=== PATIENT | male | born 1955 | race Caucasian/White ===

== ENCOUNTER → 2020-09-02 | Outpatient (CLI) | payer OTHER ==
[~2020-09-02] MED LIST: HYDR-2761 PO; HYDR50TA9 PO; LEVO88TA4 PO; MULT-445 PO
== END ==
LOC: LAB 08:45
PROVIDERS: ATTEND Surgery
DX: Z01.812 Encounter for preprocedural laboratory examination (principal); Z20.822 Contact with and (suspected) exposure to COVID-19; K80.20 Calculus of gallbladder without cholecystitis without obstruction
CPT/HCPCS: U0003

== ENCOUNTER 2020-09-04 08:15 | Observation (INO) | payer OTHER ==
[2020-09-04] VITALS (9 sets, daily range): BP systolic 107–125; BP diastolic 58–83
[~2020-09-04] VITALS: Ht 175.3 cm; Wt 104.0 kg
[~2020-09-04 08:15] MED LIST changes: +BUPIVACAINE MPF 0.5% 30 ML VIAL. ONE; -HYDR-2761 PO; +IOHEXOL 300 MG/ML 50 ML VIAL. ONE; +IV RINGERS,LACTATED 1000ML 1,000 ML IV SCH; +PROCHLORPERAZINE 10 MG/2 ML VIAL. IVP PRN; +SURGICEL HEMOSTAT 4X8 EACH. ONE; +fentaNYL PF VIAL 100 MCG/2 ML VIAL IVP PRN
[2020-09-04] MEDS ORDERED: ROCURONIUM 50 MG/5 ML VIAL. ONE ×2 (09:29→11:02)
[2020-09-04] MEDS ORDERED: SUCCINYLCHOLINE 200 MG/10 ML VIAL. ONE (09:30)
[2020-09-04] MEDS ORDERED: fentaNYL PF VIAL 100 MCG/2 ML VIAL ONE ×4 (09:30→11:30)
[2020-09-04] MEDS ORDERED: LIDOCAINE 2% PF 5 ML VIAL. ONE (09:57)
[2020-09-04] MEDS ORDERED: PROPOFOL 10 MG/ML (20ML) VIAL. IV ONE ×2 (09:57→10:07)
[2020-09-04] MEDS ORDERED: ePHEDrine PF IN SALINE 50 MG/10 ML SYRINGE. IV ONE (09:58)
[2020-09-04] MEDS ORDERED: DEXAMETHASONE SOD PHOS 4 MG/ML VIAL ONE (09:58)
[2020-09-04] MEDS ORDERED: ONDANSETRON PF 4 MG/2 ML VIAL. ONE (09:58)
[2020-09-04] MEDS ORDERED: KETOROLAC 30 MG/ML VIAL. ONE (10:07)
[2020-09-04] MEDS ORDERED: GLYCOPYRROLATE 1 MG/5 ML VIAL. ONE (10:10)
[2020-09-04] MEDS ORDERED: NEOSTIGMINE METHYLSULFATE 5 MG/5 ML SYRINGE. ONE (10:10)
[2020-09-04] MEDS ORDERED: PHENYLEPHRINE in 0.9% NACL PF 1 MG/10 ML SYRINGE. IV ONE (11:10)
[2020-09-04] MEDS ORDERED: SEVOFLURANE 61 TO 120 MINUTES. IH ONE (11:12)
[2020-09-04] MEDS ORDERED: PROCHLORPERAZINE 10 MG/2 ML VIAL. IV PRN (11:30)
[2020-09-04] MEDS ORDERED: HYDROcodone/APAP 5/325MG 1 TAB TABLET PO PRN (11:30)
[2020-09-04] MEDS ORDERED: HYDROmorphone 2 MG/ML VIAL IV PRN (11:30)
[2020-09-04] MEDS ORDERED: PROCHLORPERAZINE 10 MG/2 ML VIAL. ONE ×2 (11:30→12:49)
[2020-09-04] MEDS ORDERED: NALOXONE 0.4 MG/ML VIAL. IV PRN (11:30)
[2020-09-04] MEDS ORDERED: 0.9 % SODIUM CHLORIDE 10 ML DISP.SYRIN. IV PRN (11:30)
[2020-09-04] MEDS ORDERED: ONDANSETRON PF 4 MG/2 ML VIAL. IVP PRN (11:30)
[2020-09-04] MEDS ORDERED: IV NORMAL SALINE 1000ML BAG 1,000 ML IV SCH (11:30)
--- NOTE | 2020-09-04 11:39 | PDOC4 ---
Operative Note Operative Note Operative Note: Preoperative Diagnosis: Calculus cholecystitis Postoperative Diagnosis: Severe acute and chronic cholecystitis Procedure: Laparoscopic cholecystectomy with intraoperative cholangiogram Surgeons: David Sales Leader: MINA Huff Anesthesia: Gen. Estimated Blood Loss: 40 mL Specimen: Gallbladder to pathology Drains: 19 Portuguese GRACIELA drain Complications: None Indications: The patient is a 65-year-old male who was referred with suspected calculus cholecystitis. Surgical treatment was offered by means of a laparoscopic cholecystectomy. The risks of surgery were discussed which include bleeding, infection, bile duct injury, bile leak, pain, the potential for additi onal surgeries or procedures. The patient understands and would like to proceed. Description: The patient was taken to the operating room and laid supine on the operating table. General anesthesia was performed. The abdomen was prepped with ChloraPrep and draped in a standard surgical fashion. A small infraumbilical incision was made with a scalpel. The Veress needle was then inserted and a pneumoperitoneum was then created. A 5 mm trocar was then inserted and the laparoscope was introduced. In the upper midabdomen a 12 mm trocar was inserted and in the right upper quadrant two 5 mm trochars were inserted. The gallbladder was obscured from adherent omentum. This was peeled away revealing numerous inflammatory adhesions consistent with prior episodes of cholecystitis. The gallbladder was thick-walled consistent with acute and chronic cholecystitis. Approximately 40 cc of fluid was aspirated providing gallbladder decompression. The gallbladder was retracted cephalad. We began dissection along the inferior aspect of the gallbladder. This was again difficult due to the numerous adhesions and chronic fibrotic reaction. Ev entually the cystic duct was identified and appeared somewhat distended. One clip was placed on the duct near the gallbladder junction. An opening was made in the duct and stones and debris were extracted. A cholangiocatheter placed within and secured with a clip. Using contrast dye and fluoroscopy an intraoperative cholangiogram was performed that appeared unremarkable. The clip and catheter were then withdrawn. Three clips were placed on the cystic duct and it was divided. The cystic artery was then identified, dissected free, doubly clipped and divided as well. The gallbladder was then mobilized away from the liver with cautery. This proved very challenging due to the inflammatory response which essentially fused the gallbladder with the liver pa renchyma. A Surgicel pack was placed on the gallbladder fossa to assist with hemostasis. The gallbladder was then placed in an endoscopic bag and extracted at the superior trocar site. The fascia there was closed with 0 Vicryl sutures. All blood and irrigation fluid was suctioned and hemostasis was good. A 19 Portuguese GRACIELA drain was left in the area of the gallbladder fossa which exited at the right port incision site. This was secured to the skin with 2-0 silk. The remaining ports were removed and the pneumoperitoneum was relieved. The skin incisions were closed using 4-0 Monocryl suture. Steri-Strips and dressings were then applied. The patient tolerated the procedure well and was sent to the recovery room in stable condition. At the end of the case all counts were correct. SHANITA PUENTE MD Sep 04, 2020 11:39
[2020-09-04] MEDS: PIPERACILLIN/TAZOBACTAM 3.375 GM in IV NORMAL SALINE 50ML 50 ML IV SCH ×3 (12:28→23:52)
[2020-09-04] MEDS: fentaNYL PF VIAL 100 MCG/2 ML VIAL IVP PRN ×2 (12:31→12:42)
[2020-09-04] MEDS ORDERED: HYDROmorphone 2 MG/ML VIAL ONE (12:40)
[2020-09-04] MEDS: HYDROmorphone 2 MG/ML VIAL IVP PRN ×4 (12:44→13:24)
[2020-09-04] MEDS ORDERED: MORPHINE SULFATE 2 MG/ML VIAL. ONE (13:22)
[2020-09-04] MEDS: MORPHINE SULFATE 2 MG/ML VIAL. IVP PRN ×2 (13:24→13:43)
--- NOTE | 2020-09-04 13:25 | RAD ---
Cholangiogram INDICATION: Intraoperative cholangiogram COMPARISON: None FINDINGS: 3 images were acquired using a total of 0.19 minutes of fluoroscopy time during cholangiography perfo rmed intraoperatively. They show an absent gallbladder with cannulation of the cystic duct and opacif ication of the intra and extrahepatic biliary tree with appropriate drainage into the duodenum. No fi lling defects suspicious for a retained common bile duct stone. IMPRESSION: Intraoperative cholangiogram showing no evidence of choledocholithiasis status post cholecystectomy Electronically signed by: Romina Cosby MD (09/04/2020 1:22 PM) [id number]
[2020-09-04] MEDS: IV 1/2 NORMAL SALINE 1,000 ML IV SCH ×2 (16:46→21:45)
[2020-09-04] MEDS: HYDROcodone/APAP 5/325MG 1 TAB TABLET PO PRN ×2 (16:46→22:34)
[2020-09-05 02:56] VITALS: BP 133/74
[2020-09-05] MEDS: PIPERACILLIN/TAZOBACTAM 3.375 GM in IV NORMAL SALINE 50ML 50 ML IV SCH (05:48)
[2020-09-05] MEDS: HYDROcodone/APAP 5/325MG 1 TAB TABLET PO PRN (05:49)
[2020-09-05 07:00] VITALS: BP 143/78
[2020-09-05] MEDS ORDERED: LEVOTHYROXINE 88 MCG TABLET PO SCH (07:30)
[2020-09-05] MEDS: IV 1/2 NORMAL SALINE 1,000 ML IV SCH (07:30)
--- NOTE | 2020-09-05 08:40 | PDOC ---
NOAH MERLOS APRN 09/05/20 0840: SURGICAL PROGRESS NOTE DATE: 09/05/20 TIME: 08:39 Subjective tolerating diet ambulating pain managed Vital Signs Vital Signs Date Time Temp Pulse Resp B/P (MAP) Pulse Ox O2 Delivery O2 Flow Rate FiO2 09/05/20 08:03 Room Air 09/05/20 07:00 98.2 16 143/78 (99) 92 98.2 09/05/20 02:56 74 09/04/20 14:30 2.0 I&O Intake and Output 09/05/20 07:00 Intake Total 2500 ml Output Total 1585 ml Balance 915 ml Intake Oral 400 ml IV Total 2100 ml Output Urine Total 1525 ml Drainage Total 20 ml Estimated Blood Loss 40 ml General: Alert, Oriented X3, Cooperative Abdomen: Soft, Other (ND, drain bloody, incisions intact) Assessment/Plan s/p kenneth home drain FU 09/16 Justicifation of Admission Dx: Justifications for Admission: Justification of Admission Dx: Yes Comments: cholecystitis SHANITA PUENTE MD 09/05/20 0932: SURGICAL PROGRESS NOTE Assessment/Plan Agree with above NOAH MERLOS APRN Sep 05, 2020 08:40 SHANITA PUENTE MD Sep 05, 2020 09:32
[2020-09-05] MEDS ORDERED: HYDR-2761 PO (08:42)
--- NOTE | 2020-09-05 08:44 | DISCH ---
DISCHARGE INSTRUCTIONS Condition on Discharge Condition on Discharge: Stable Activity After Discharge Activity Instructions for Disc: Activity as tolerated Bathing Instructions: Shower-keep dressing dry Lifting Instructions after Dis: No pulling or pushing, Do not lift >10 pounds Exercise Instruction after Dis: Progress as tolerated Driving Instructions after Dis: Do not drive today (no driving if taking narcotics ) Diet after Discharge Diet after Discharge: Low Fat Wound Incision Care Wound/Incision Care: Change dressing, May get incision wet Other wound/incision instructi: drain care as instructed Contacting the after DC Call your doctor for: Concerns you may have Follow-Up Follow up with: Dr Hernandez 09/16 at 145, come 15 mins early, NOAH MERLOS APRN Sep 05, 2020 08:44
[2020-09-05] MEDS ORDERED: hydroCHLOROthiazide 25 MG TABLET PO SCH (09:00)
--- NOTE | 2020-09-05 10:08 | NUR ---
SW following. Discussed with RN, pt from home, low fat diet, room air. Discharge order for home with self care. RN advised no SW needs.
[2020-09-05 10:54] VITALS: BP 141/72
--- NOTE | 2020-09-05 11:20 | NUR ---
PT DISCHARGED HOME WITH SELF CARE. DISCHARGE INSTRUCTIONS AND PRESCRIPTIONS DISCUSSED. GRACIELA DRAIN TEACHING PROVIDED PT VERBALIZED UNDERSTANDING. GRACIELA DRESSING CHANGED. PAIN MEDS ADMINISTERED. PT ASSISTED TO WHEELCHAIR AND WAS TAKEN TO MAIN ENTRANCE AND SECURED IN CAR WITH BROTHER.
--- NOTE | 2020-09-08 13:18 | PDOC3 ---
Discharge Summary Visit Information Date of Admission: Sep 04, 2020 Date of Discharge: Sep 05, 2020 Admitting Diagnosis: Calculus cholecystitis Final Diagnosis Severe acute and chronic cholecystitis Brief Hospital Course Allergies Allergies Coded Allergies Type Severity Reaction Last Updated Verified No Known Drug Allergies 09/04/20 No Brief Hospital Course Mr. Carty is a 65 old male who underwent Laparoscopic cholecystectomy with intraoperative cholangiogram.. postoperatively tolerating diet, pain managed, and urinating. Due to severity of operative findings patient discharged home with a drain and will FU in office next week Discharge Information Condition at Discharge: Stable Follow Up: Weeks (1) Disposition/Orders: D/C to Home Scheduled Hydrochlorothiazide (Hydrochlorothiazide Tablet) 50 Mg Tablet, 25 MG PO DAILY for DIURETIC, Ref 0 (Reported) Entered as Reported by: CYNTHIA WATSON on 09/03/201308 Last Taken: Unknown Dose on 09/03/200 Last Action: Converted on 09/04/201133 by SHANITA PUENTE Levothyroxine Sodium (Levothyroxine Sodium) 88 Mcg Tablet, 88 MCG PO DAILYAC for THYROID SUPPLEMENT, #30 Ref 0 (Reported) Entered as Reported by: CYNTHIA WATSON on 09/03/201308 Last Taken: Unknown Dose on 09/03/200 Last Action: Continued on 09/04/201133 by SHANITA PUENTE Multivitamin (Multivitamins) 1 Each Tablet, 1 EACH PO DAILY for supplement, (Reported) Entered as Reported by: CYNTHIA WATSON on 09/03/201308 Last Action: HELD on 09/04/201133 by SHANITA PUENTE Scheduled PRN Hydrocodone Bit/Acetaminophen (Hydrocodone-Apap 5-325 ) 1 Tab Tablet, 1 TAB PO PRN Q4HRS PRN for MILD PAIN 1-3, #30 Ref 0 Prescribed by: Zuly Samuels on 09/05/20 0842 Justicifation of Admission Dx: Justifications for Admission: Justification of Admission Dx: Yes ZULY SAMUELS EXTENSION DIVISION DIRECTOR Sep 08, 2020 13:18
--- NOTE | 2020-09-08 21:39 | PATHOLOGY ---
[facility] Accession Number: [id number] . 01 Material submitted: . gallbladder - GALLBLADDER AND CONTENTS . 01 Clinical history: . CHOLECYSTECTOMY . 02 Diagnosis: Gallbladder, cholecystectomy: - Cholelithiasis. - Cholesterolosis. - Chronic cholecystitis. ([facility] 09/08/2020) [facility] 09/08/2020 1034 Local . 02 Comment: There is no evidence of malignancy. ([facility] 09/08/2020) . 02 Electronically signed: . Ko Diaz MD, Pathologist NPI- [id number] . 01 Gross description: . Received in formalin labeled "Aj Goodwin, gallbladder and contents" is intact cholecystectomy specimen measuring 7.8 x 2.9 x 1.9 cm. The serosa is smooth, red-purple and glistening with a roughened hepatic bed. Located within the hepatic bed are multiple full-thickness defects ranging from 0.7-1.1 cm in greatest dimension with the closest defect measuring 2.1 cm from the cystic duct margin. The specimen is opened to reveal velvety, hooker-pink mucosa without polyps or masses. The average wall thickness is 0.7 cm. There are multiple hooker-yellow multifaceted calculi measuring in aggregate 5.6 x 1.8 x 1.6 cm. There are no possible lymph nodes grossly identified. Food And Beverage Analyst sections of the fundus and body and the cystic duct margin are submitted in A1. ([facility]; 09/05/2020) [facility] 09/08/2020 1033 Local . 02 Pathologist provided ICD-10: K80.10, K82.4 . 02 CPT . 268945 Specimen Comment: A courtesy copy of this report has been sent to [phone] Specimen Comment: Report sent to Performed at: 01 [facility] [address] [facility] [address], [place] [id number] MD Tony Giraldo MD Phone: [phone] Performed at: 02 [facility] [address] [place], [place] [id number] MD Ko Diaz MD Phone: [phone]
== END 2020-09-05 11:23 | disposition home or self-care (01) ==
LOC: SURG 08:15 → 4 NORTH 11:30
PROVIDERS: ADMIT Surgery; ATTEND Surgery
DX: K81.2 Acute cholecystitis with chronic cholecystitis (principal)
CPT/HCPCS: 47563; 74300; 88304; 96361; 96365; 96366; G0378; G0379; J0330; J0690; J0780; J1100; J1170; J1885; J2270; J2370; J2405; J2543; J2704; J2710; J3010; J3490; J7120; Q9967